=== PATIENT | female | born 1985 | race Two or more races ===

== ENCOUNTER 2024-12-23 16:56 | Inpatient (IN) | payer OTHER ==
[~2024-12-23] VITALS: Ht 154.9 cm; Wt 65.5 kg
[2024-12-23] MEDS: ONDANSETRON HCL 4 MG/2 ML VIAL IV ONE (17:30)
--- NOTE | 2024-12-23 17:30 | ED.PDOC ---
SOB-HPI HPI Comments 39 y.o female presents to the ED for a chief complaint of a productive cough associated with fever, chills, a a generalized headache that started 5 days ago. Patient reports daughter recently tested positive for Influenza with similar episode. Patient went to urgent care today, was placed on oxygen for comfort and sent to the ED for further evaluation. Patient reports productive cough has caused her to develop right shoulder pain and is now having green and yellow phlegm sputum. She denies any nausea, vomiting, chest pain, SOB. No medical, social history or allergies. Chief Complaint: Cough Time Seen by MD: 17:23 Reviewed notes: Nurses Notes, Medications, Allergies Information Source: Patient Mode of Arrival: Ambulatory Severity: Moderate Timing: Days (5) Duration: Since onset Context: At Rest PE Risk Factors: None History of: None Modifying Factors: Nothing Associated Signs and Symptoms: Cough If cough with SOB: Productive, Yellow, Green Past Medical History PAST MEDICAL HISTORY: Denies Surgical History: Hysterectomy Family History Family History: Family hx of DM, Family hx of HTN Social History Smoker: Non-Smoker Alcohol: Denies ETOH Use Drugs: Denies Drug Use Lives In: Home Constitutional: reports: chills, fever; denies: diaphoresis, fatigue, malaise, sweats, weakness, others EENTM: denies: blurred vision, double vision, ear bleeding, ear discharge, ear drainage, ear pain, ear ringing, eye pain, eye redness, hearing loss, mouth pain, mouth swelling, nasal discharge, nose bleeding, nose congestion, nose pain, photophobia, tearing, throat pain, throat swelling, voice changes, others Respiratory: reports: cough, SOB at rest, shortness of breath, SOB with excertion; denies: hemoptysis, orthopnea, stridor, wheezing, others Cardiovascular: denies: chest pain, dizzy spells, diaphoresis, Dyspnea on exertion, edema, irregular heart beat, left arm pain, lightheadedness, palpitations, PND, syncope, others Gastrointestinal: denies: abdomen distended, abdominal pain, blood streaked bowels, constipated, diarrhea, dysphagia, difficulty swallowing, hematemesis, melena, nausea, poor appetite, poor fluid intake, rectal bleeding, rectal pain, vomiting, others Genitourinary: denies: abnormal vagina bleeding, burning, dyspareunia, dysuria, flank pain, frequency, hematuria, incontinence, pain, , vagina discharge, urgency, others Neurological: denies: dizziness, fainting, headache, left sided numbness, left sided weakness, numbness, paresthesia, pre-existing deficit, right sided numb ness, right sided weakness, seizure, speech problems, tingling, tremors, weakness, others Musculoskeletal: denies: back pain, gout, joint pain, joint swelling, muscle pain, muscle stiffness, neck pain, others Integumetry: denies: bruises, change in color, change in hair/nails, dryness, laceration, lesions, lumps, rash, wounds, others Allergic/Immunocompromised: denies: Difficulty Healing, Frequent Infections, Hives, Itching, others Hematologic/Lymphatic: denies: anemia, blood clots, easy bleeding, easy bruising, swollen glands, others Endocrine: denies: excessive hunger, excessive sweating, excessive thirst, excessive urination, flushing, intolerance to cold, intolerance to heat, unexplained weight gain, unexplained weight loss, others Psychiatric: denies: anxiety, bipolar disorder, depression, hopeless, panic disorder, schizophrenia, sleepless, suicidal, others All Other Systems: Reviewed and Negative Physical Exam General Appearance: Moderate Distress HEENT: Normal ENT Inspection, Pharynx Normal, TMs Normal Neck: Full Range of Motion, Non-Tender, Normal, Normal Inspection Respiratory: Chest Non-Tender, No Accessory Muscle Use, Normal Breath Sounds, Rales (Right lower lung) Cardiovascular: No Edema, No JVD, No Murmur, No Gallop, Tachycardia Breast Exam: Deferred Gastrointestinal: No Organomegaly, Non Tender, No Pulsatile Mass, Normal Bowel Sounds, Soft Genitalia: Deferred Pelvic: Deferred Rectal: Deferred Extremities: No calf tenderness, Normal capillary refill, Normal inspection, Normal range of motion, Non-tender, No pedal edema Musculoskeletal : Apperance: Normal Neurologic: Alert, 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 Was a procedure done?: No Differential Dx Differential Diagnosis: COPD, Pneumonia, Respiratory Distress, URI X-Ray, Labs, Meds, VS Vital Signs Date Time Temp Pulse Resp B/P (MAP) Pulse Ox O2 Delivery O2 Flow Rate FiO2 12/23/24 17:20 Room Air 0 12/23/24 17:20 98.4 97 15 90/55 (67) 99 Lab Test 12/23/24 18:04 Range/Units White Blood Count 18.4 H 4.4-10.8 10^3/uL Red Blood Count 5.49 H 4.0-5.20 10^6/uL Hemoglobin 12.6 12.2-16.2 g/dL Hematocrit 38.8 36.0-46.0 % Mean Corpuscular Volume 70.6 L 80.0-100.0 fL Mean Corpuscular Hemoglobin 23.0 L 28.0-32.0 pg Mean Corpuscular Hemoglobin Concent 32.5 32.0-36.0 g/dL Red Cell Distribution Width 15.0 H 11.8-14.3 % Platelet Count 442 140-450 10^3/uL Mean Platelet Volume 7.3 6.9-10.8 fL Neutrophils (%) (Auto) 86.1 H 37.0-80.0 % Lymphocytes (%) (Auto) 5.1 L 10.0-50.0 % Monocytes (%) (Auto) 8.5 0.0-12.0 % Eosinophils (%) (Auto) 0.1 0.0-7.0 % Basophils (%) (Auto) 0.2 0.0-2.0 % Neutrophils # (Auto) 15.8 H 1.6-8.6 10 ^3/uL Lymphocytes # (Auto) 0.9 0.4-5.4 10 ^3/uL Monocytes # (Auto) 1.6 H 0-1.3 10 ^3/uL Eosinophils # (Auto) 0 0-0.8 10 ^3/uL Basophils # (Auto) 0 0-0.2 10 ^3/uL Nucleated Red Blood Cells 0.2 % Sodium Level 137 136-145 mmol/L Potassium Level 4.2 3.5-5.1 mmol/L Chloride Level 102 98-107 mmol/L Carbon Dioxide Level 26 20-31 mmol/L Anion Gap 9 5-15 Blood Urea Nitrogen 14 9-23 mg/dL Creatinine 0.72 0.550-1.02 mg/dL Glomerular Filtration Rate Calc 108 >90 mL/min BUN/Creatinine Ratio 19.4 10.0-20.0 Serum Glucose 109 H 74-106 mg/dL Calcium Level 9.6 8.7-10.4 mg/dL The chest x-ray shows a right lower lobe pneumonia The CBC shows an elevated white blood cell count of 18.4 The rest of the CBC is within normal limits The chemistry panel is within normal limits The patient was started on Rocephin 1 g IV piggyback The patient was being admitted at this time Images Reviewed?: Images reviewed and evaluated by me Time of 1ST Reevaluation: 17:26 Reevaluation 1ST: Unchanged Patient Education/Counseling: Diagnosis, Treatment, Prognosis Family Education/Counseling: Diagnosis, Treatment, Prognosis Departure 1 Departure Time of Disposition: 19:10 Impression: Primary Impression: Right lower lobe pneumonia Qualified Codes: J18.9 - Pneumonia, unspecified organism Disposition: ADMITTED INPATIENT Admit to: Med Surg Condition: Fair Critical Care Note Critical Care Time?: No Stability Stability form required: Yes Unstable for transfer: Telemetry monitoring (Telemetry monitoring required), ED Physician Assesment (Clinical assesment) I personally scribed for ALANNAH CLARK MD ([email or web address]) on 12/23/24 at 17:30. Electronically submitted by Francia Ji ([facility]). ALANNAH CLARK MD Dec 23, 2024 17:30
--- NOTE | 2024-12-23 18:01 | DVH ---
CHEST RADIOGRAPH Indication: cough Technique: Frontal and lateral view of the chest was obtained Comparison: None FINDINGS: Lines and Tubes: None Lungs: Right lower lobe pneumonia. Pleura: No effusion. No pneumothorax. Cardiomediastinal contours: Unremarkable Bones: Unremarkable IMPRESSION: 1. Right lower lobe pneumonia.
[2024-12-23 18:23] LABS: Basophils # (auto) 0 10 ^3/uL (0-0.2); Basophils % (auto) 0.2 % (0.0-2.0); Eosinophils # (auto) 0 10 ^3/uL (0-0.8); Eosinophils % (auto) 0.1 % (0.0-7.0); Hematocrit 38.8 % (36.0-46.0); Hemoglobin 12.6 g/dL (12.2-16.2); Lymphocytes # (auto) 0.9 10 ^3/uL (0.4-5.4); Lymphocytes % (auto) 5.1 % (10.0-50.0); Mean Corpuscular Hgb Conc. 32.5 g/dL (32.0-36.0); Mean Corpuscular Volume 70.6 fL (80.0-100.0); Monocytes # (auto) 1.6 10 ^3/uL (0-1.3); Monocytes % (auto) 8.5 % (0.0-12.0); Neutrophils # (auto) 15.8 10 ^3/uL (1.6-8.6); Neutrophils % (auto) 86.1 % (37.0-80.0); Nucleated Red Blood Cells % 0.2 %; Platelet Count (auto) 442 10^3/uL (140-450); Red Blood Cells 5.49 10^6/uL (4.0-5.20); White Blood Cell 18.4 10^3/uL (4.4-10.8)
[2024-12-23 18:28] LABS: Chloride 102 mmol/L (98-107); Potassium 4.2 mmol/L (3.5-5.1); Sodium 137 mmol/L (136-145)
[2024-12-23 18:29] LABS: Anion Gap 9 (5-15); Carbon Dioxide 26 mmol/L (20-31)
[2024-12-23 18:30] LABS: Calcium 9.6 mg/dL (8.7-10.4)
[2024-12-23 18:34] LABS: BUN/Creatinine Ratio 19.4 (10.0-20.0); Blood Urea Nitrogen 14 mg/dL (9-23)
[2024-12-23 18:36] LABS: Glucose 109 mg/dL (74-106)
[2024-12-23] MEDS ORDERED: ALBUTEROL SULF 2.5 MG/0.5ML(0.5%) NEB SOLN NEB PRN (20:15)
[2024-12-23] MEDS ORDERED: ONDANSETRON HCL 4 MG/2 ML VIAL IV PRN (20:15)
[2024-12-23 21:00] VITALS: PULSE 89; RESP 12; O2SAT 98
[2024-12-23] MEDS: SODIUM CHLORIDE 0.9% 1,000 ML IV ONE (21:30)
[2024-12-23] MEDS: ACETAMINOPHEN 325 MG TAB PO PRN (21:30)
[2024-12-23] MEDS: cefTRIAXone 1GM/50ML D5W 50 ML IV ONE (21:30)
[2024-12-23 22:00] VITALS: BP 89/50; PULSE 87; RESP 16; TEMP 97.6; O2SAT 99
[2024-12-23 22:18] LABS: COVID19 ANTIGEN SOFIA FIA NEGATIVE (NEGATIVE); Rapid Influenza A Negative (Negative); Rapid Influenza B Negative (Negative)
[2024-12-23 22:20] VITALS: BP 90/55; PULSE 97; RESP 15; TEMP 98.4; O2SAT 99
[2024-12-23] MEDS: AZITHROMYCIN 500MG/ 250ML 250 ML IV ONE (23:48)
[2024-12-24 01:00] VITALS: BP 97/55; PULSE 86; RESP 16; TEMP 98.9; O2SAT 99
[2024-12-24] MEDS: guaiFENesin-DM 100/10mg/5ml SYR PO PRN (03:59)
--- NOTE | 2024-12-24 04:49 | DVHHP2 ---
History of Present Illness Reason for Visit: Shortness for breath History of Present Illness 39-year-old female presents for evaluation of shortness for breath. Patient presents with complaints of shortness for breath with a productive cough that has been ongoing for the past five days. She also reports having intermittent fever and chills. She states her daughter recently tested positive for influenza. Denies any other acute complaints at the moment. Past Medical History Denies Past Surgical History Hysterectomy Family History Noncontributory Smoke: No ALCOHOL: none Drugs: None Lives: with Family Review of Systems Review of Systems Review of systems are currently negative otherwise addressed in HPI. Allergies: Coded Allergies: NO KNOWN ALLERGIES (Unverified , 12/23/24) Medications Current Medications Medications Dose Ordered Sig/Lauro Route Start Time Stop Time Status Last Admin Dose Admin Ceftriaxone Sodium 50 ml @ 100 mls/hr DAILY@09 IV 12/24/24 09:00 Guaifenesin/ Dextromethorphan 10 ml Q4HP PRN PO 12/23/24 20:15 12/24/24 03:59 10 ML Azithromycin 250 ml @ 125 mls/hr DAILY IV 12/24/24 10:00 UNV Albuterol 2.5 mg Q6HPRN PRN NEB 12/23/24 20:15 Ondansetron HCl 4 mg Q4HP PRN IV 12/23/24 20:15 Acetaminophen 650 mg Q6HP PRN PO 12/23/24 20:15 12/24/24 03:54 650 MG Exam Vital Signs Vital Signs Date Time Temp Pulse Resp B/P (MAP) Pulse Ox O2 Delivery O2 Flow Rate FiO2 12/24/24 01:00 98.9 86 16 97/55 (69) 99 98.9 12/23/24 22:20 21 12/23/24 22:20 Nasal Cannula* 2 Exam Gen: 39-year-old female in mild distress. Skin: Warm, dry, normal color and texture, no rash. HEENT: Normocephalic atraumatic, mucous membranes moist and pink. Neck: Cervical and supraclavicular nodes normal without enlargement, trachea is midline, thyroid gland is normal without masses. Pulmonary: Diminished breath sounds bilaterally Cardiac: Regular rate and rhythm. No murmur Abdomen: Soft, nontender, nondistended, bowel sounds present all 4 quadrants, no guarding, no rigidity, no organomegaly. Extremities: No cyanosis, clubbing, no edema Neuro: Cranial nerves II through XII grossly intact, normal affect and speech, no focal motor deficits. Labs/Xrays ORDERING PHYSICIAN: ALANNAH CLARK MD PROCEDURE(s): CXR2 - CHEST TWO VIEWS ROUTINE REASON: cough ORDER NUMBER(s): [id number], ACCESSION NUMBER(s): [id number] CHEST RADIOGRAPH Indication: cough Technique: Frontal and lateral view of the chest was obtained Comparison: None FINDINGS: Lines and Tubes: None Lungs: Right lower lobe pneumonia. Pleura: No effusion. No pneumothorax. Cardiomediastinal contours: Unremarkable Bones: Unremarkable IMPRESSION: 1. Right lower lobe pneumonia. Labs Test 12/23/24 21:36 12/23/24 20:36 12/23/24 18:04 Range/Units Influenza Type A Antigen Negative Negative Influenza Type B Antigen Negative Negative SARS-CoV-2 Antigen (Rapid) Negative NEGATIVE Lactic Acid Level 1.2 0.4-2.0 mmol/L White Blood Count 18.4 H 4.4-10.8 10^3/uL Red Blood Count 5.49 H 4.0-5.20 10^6/uL Hemoglobin 12.6 12.2-16.2 g/dL Hematocrit 38.8 36.0-46.0 % Mean Corpuscular Volume 70.6 L 80.0-100.0 fL Mean Corpuscular Hemoglobin 23.0 L 28.0-32.0 pg Mean Corpuscular Hemoglobin Concent 32.5 32.0-36.0 g/dL Red Cell Distribution Width 15.0 H 11.8-14.3 % Platelet Count 442 140-450 10^3/uL Mean Platelet Volume 7.3 6.9-10.8 fL Neutrophils (%) (Auto) 86.1 H 37.0-80.0 % Lymphocytes (%) (Auto) 5.1 L 10.0-50.0 % Monocytes (%) (Auto) 8.5 0.0-12.0 % Eosinophils (%) (Auto) 0.1 0.0-7.0 % Basophils (%) (Auto) 0.2 0.0-2.0 % Neutrophils # (Auto) 15.8 H 1.6-8.6 10 ^3/uL Lymphocytes # (Auto) 0.9 0.4-5.4 10 ^3/uL Monocytes # (Auto) 1.6 H 0-1.3 10 ^3/uL Eosinophils # (Auto) 0 0-0.8 10 ^3/uL Basophils # (Auto) 0 0-0.2 10 ^3/uL Nucleated Red Blood Cells 0.2 % Sodium Level 137 136-145 mmol/L Potassium Level 4.2 3.5-5.1 mmol/L Chloride Level 102 98-107 mmol/L Carbon Dioxide Level 26 20-31 mmol/L Anion Gap 9 5-15 Blood Urea Nitrogen 14 9-23 mg/dL Creatinine 0.72 0.550-1.02 mg/dL Glomerular Filtration Rate Calc 108 >90 mL/min BUN/Creatinine Ratio 19.4 10.0-20.0 Serum Glucose 109 H 74-106 mg/dL Calcium Level 9.6 8.7-10.4 mg/dL Assessment/Plan Assessment/Plan Assessment Community-acquired pneumonia Leukocytosis SIRS Plan Admit the patient to Med surge to the hospitalist Rocephin/azithromycin Med nebs Continue treatment per orders Plan discussed with: Patient My Orders Orders - FABI VITALE Procedure Category Date Status Time Ceftriaxone 1gm/50ml PHA 12/24/24 In Process D5w (Rocephin) 09:00 Guaifenesin-Dextromet PHA 12/23/24 In Process Liquid (Robitussin 20:15 Azithromycin 500mg/ PHA 12/24/24 Pending 250ml (Zithromax 50 10:00 Albuterol Medneb PHA 12/23/24 In Process (Ventolin Medneb) 20:15 Basic Metabolic Panel LAB 12/24/24 Logged 04:00 Blood Culture VILLA 12/23/24 In Process 20:09 Admit ADMIT 12/23/24 Transmitted 20:09 Ondansetron Hcl PHA 12/23/24 In Process (Zofran) 20:15 Complete Blood Count LAB 12/24/24 Logged 04:00 Condition: Stable SHAKIR 12/23/24 In Process 20:09 Acetaminophen Tablet PHA 12/23/24 In Process (Tylenol Tablet) 20:15 Bedrest With Bathroom SHAKIR 12/23/24 In Process Privileg 20:09 Date of Service: Dec 23, 2024 Billing Provider: FABI VITALE Common Visit Codes: [id number] INP/OBS CARE (HIGH) FABI VITALE Dec 24, 2024 04:49
[2024-12-24 05:00] VITALS: BP 95/56; PULSE 82; RESP 16; TEMP 97.9; O2SAT 97
[2024-12-24 06:16] VITALS: O2SAT 95
[2024-12-24 06:49] LABS: Basophils # (auto) 0 10 ^3/uL (0-0.2); Basophils % (auto) 0.1 % (0.0-2.0); Eosinophils # (auto) 0.1 10 ^3/uL (0-0.8); Eosinophils % (auto) 0.3 % (0.0-7.0); Monocytes # (auto) 2.1 10 ^3/uL (0-1.3)
[2024-12-24 06:53] LABS: Hemoglobin 11.1 g/dL (12.2-16.2); Lymphocytes # (auto) 2.1 10 ^3/uL (0.4-5.4); Lymphocytes % (auto) 10.5 % (10.0-50.0); Mean Corpuscular Hemoglobin 23.1 pg (28.0-32.0); Mean Corpuscular Hgb Conc. 32.7 g/dL (32.0-36.0); Mean Corpuscular Volume 70.7 fL (80.0-100.0); Monocytes % (auto) 10.7 % (0.0-12.0); Neutrophils # (auto) 15.4 10 ^3/uL (1.6-8.6); Neutrophils % (auto) 78.4 % (37.0-80.0); Platelet Count (auto) 358 10^3/uL (140-450); Red Blood Cells 4.81 10^6/uL (4.0-5.20); Red Cell Distribution Width 14.9 % (11.8-14.3); White Blood Cell 19.6 10^3/uL (4.4-10.8)
[2024-12-24 07:08] LABS: Chloride 103 mmol/L (98-107); Potassium 3.8 mmol/L (3.5-5.1); Sodium 137 mmol/L (136-145)
[2024-12-24 07:09] LABS: Anion Gap 6 (5-15); Calcium 9.2 mg/dL (8.7-10.4); Carbon Dioxide 28 mmol/L (20-31)
[2024-12-24 07:14] LABS: BUN/Creatinine Ratio 23.2 (10.0-20.0); Blood Urea Nitrogen 13 mg/dL (9-23); Glucose 103 mg/dL (74-106)
[2024-12-24 08:00] VITALS: BP 102/73; PULSE 80; TEMP 97.6; O2SAT 97
[2024-12-24] MEDS: cefTRIAXone 1GM/50ML D5W 50 ML IV SCH (08:44)
[2024-12-24] MEDS: AZITHROMYCIN 500MG/ 250ML 250 ML IV SCH (10:28)
[2024-12-24] MEDS ORDERED: DEXT1SYP9 PO (14:43)
[2024-12-24] MEDS ORDERED: LEVO500T91 PO (14:43)
--- NOTE | 2024-12-24 14:46 | DVHDS2 ---
Discharge Summary Date of Admission Dec 23, 2024 at 20:35 Date of Discharge: Dec 24, 2024 Labs/Diagnostic Data: Laboratory Results Test 12/24/24 05:57 12/23/24 21:36 12/23/24 20:36 White Blood Count 19.6 10^3/uL (4.4-10.8) Red Blood Count 4.81 10^6/uL (4.0-5.20) Hemoglobin 11.1 g/dL (12.2-16.2) Hematocrit 34.0 % (36.0-46.0) Mean Corpuscular Volume 70.7 fL (80.0-100.0) Mean Corpuscular Hemoglobin 23.1 pg (28.0-32.0) Mean Corpuscular Hemoglobin Concent 32.7 g/dL (32.0-36.0) Red Cell Distribution Width 14.9 % (11.8-14.3) Platelet Count 358 10^3/uL (140-450) Mean Platelet Volume 7.5 fL (6.9-10.8) Neutrophils (%) (Auto) 78.4 % (37.0-80.0) Lymphocytes (%) (Auto) 10.5 % (10.0-50.0) Monocytes (%) (Auto) 10.7 % (0.0-12.0) Eosinophils (%) (Auto) 0.3 % (0.0-7.0) Basophils (%) (Auto) 0.1 % (0.0-2.0) Neutrophils # (Auto) 15.4 10 ^3/uL (1.6-8.6) Lymphocytes # (Auto) 2.1 10 ^3/uL (0.4-5.4) Monocytes # (Auto) 2.1 10 ^3/uL (0-1.3) Eosinophils # (Auto) 0.1 10 ^3/uL (0-0.8) Basophils # (Auto) 0 10 ^3/uL (0-0.2) Nucleated Red Blood Cells 0.0 % Sodium Level 137 mmol/L (136-145) Potassium Level 3.8 mmol/L (3.5-5.1) Chloride Level 103 mmol/L (98-107) Carbon Dioxide Level 28 mmol/L (20-31) Anion Gap 6 (5-15) Blood Urea Nitrogen 13 mg/dL (9-23) Creatinine 0.56 mg/dL (0.550-1.02) Glomerular Filtration Rate Calc 118 mL/min (>90) BUN/Creatinine Ratio 23.2 (10.0-20.0) Serum Glucose 103 mg/dL (74-106) Calcium Level 9.2 mg/dL (8.7-10.4) Influenza Type A Antigen Negative (Negative) Influenza Type B Antigen Negative (Negative) SARS-CoV-2 Antigen (Rapid) Negative (NEGATIVE) Lactic Acid Level 1.2 mmol/L (0.4-2.0) Other Laboratory Tests 12/24/24 05:57 Brief Hx & Hospital Course: Final diagnoses: Right lower lobe pneumonia Sirs Leukocytosis due to pneumonia 39-year-old female who was admitted for cough and shortness of breaths Chest x-ray shows right lower lobe pneumonia COVID and flu are all negative She had family member at home with the flu few days ago The patient is stable She is on room air White count is elevated but she is asymptomatic except for dry cough She can be discharged home to be treated at home with levofloxacin 500 mg daily for 10 days and Robitussin DM p.r.n. Follow up with the primary care physician in 1 week She was instructed if she does not get better in 2 3 days to come back to the emergency room order to urgent care for follow up Condition at Discharge: Stable Final Diagnosis/Problems List Lower lobe pneumonia Sirs Leukocytosis Discharge Disposition: Home SNF Discharge Will this Physician continue t: No Discharge Instruct/Medications Diet: Regular Activity: No Restrictions, As Tolerated Follow Up/Referral: PCP in 1 week Medications: Levofloxacin 500 mg daily for 10 days Robitussin DM p.r.n. Discharge Statement: "Patient was advised to return to the ER or call 911 if any headaches, dizziness, shortness of breath, chest pain, abdominal pain, bleeding, fevers, or worsening of medical condition. Patient was counseled about treatment plan, medications, possible side effects, patientverbalized understanding. All questions were answered to the best of my ability. This discharge took greater then 30 minutes in planning, reviewing documentation, counseling the patient, and discussing with other team members." ASSESSMENT ASSESSMENT Assessment Lower lobe pneumonia Sirs Leukocytosis Date of Service: Dec 24, 2024 Billing Provider: RADHA DOLAN MD Common Visit Codes: 29267-TVB/OBS DISCH DAY >30min RADHA DOLAN MD Dec 24, 2024 14:46
--- NOTE | 2024-12-24 15:56 | ECG ---
[facility] Test Date: 2024-12-24 Test Time: 14:26:39 Pat Name: BRIAN JOHNSTON Department: ER Holding Room: [address] [place] [address] A Gender: F Materials Planning Manager: MC : [id number] Requested By: RADHA DOLAN Order Number: [id number] Reading MD: Measurements Intervals [place]ox Rate: 82 P: 40 NE: 145 QRS: 53 QRSD: 87 T: 33 QT: 348 QTc: 407 Interpretive Statements Sinus rhythm Probable anteroseptal infarct, old Baseline wander in lead(s) V4 Please click the below link to view image of tracing.
== END 2024-12-24 16:12 | disposition home or self-care (01) | DRG 195 ==
LOC: ER 16:56 → OVERFLOW 20:14
PROVIDERS: ADMIT Nurse Practitioner; ATTEND Internal Medicine Geriatric Medicine
DX: J18.9 Pneumonia, unspecified organism (principal); Z83.3 Family history of diabetes mellitus; Z90.710 Acquired absence of both cervix and uterus; Z82.49 Family history of ischemic heart disease and other diseases of the circulatory system; Z79.899 Other long term (current) drug therapy
CPT/HCPCS: 36415; 71046; 80048; 83605; 85025; 87040; 87426; 87804; 93005; G0378